=== PATIENT | male | born 2000 | race African-American/Black ===

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

== ENCOUNTER 2019-07-11 12:11 | Emergency (ER) | payer OTHER ==
[2019-07-11] MEDS ORDERED: ABIL1TAB11 PO (12:41)
[2019-07-11] MEDS ORDERED: VYVA20CA PO (12:41)
[2019-07-11 15:28] VITALS: BP 105/72
== END 2019-07-11 15:34 | disposition home or self-care (01) ==
LOC: M ED 12:11
DX: F41.1 Generalized anxiety disorder (principal); F90.9 Attention-deficit hyperactivity disorder, unspecified type; Z79.899 Other long term (current) drug therapy

== ENCOUNTER 2019-08-21 13:08 | Emergency (ER) | payer OTHER ==
[~2019-08-21] VITALS: Ht 160 cm; Wt 49.8 kg
[2019-08-21 13:08] VITALS: BP 112/60
[~2019-08-21 13:08] MED LIST: ABIL1TAB11 PO; VYVA20CA PO
[2019-08-21] MEDS ORDERED: ARIP1TAB4 (13:11)
[2019-08-21] MEDS ORDERED: VYVA20CA PO (13:36)
== END 2019-08-21 13:50 | disposition home or self-care (01) ==
LOC: M ED 13:08
DX: Z76.0 Encounter for issue of repeat prescription (principal); F90.9 Attention-deficit hyperactivity disorder, unspecified type; Z79.899 Other long term (current) drug therapy

== ENCOUNTER 2019-10-08 17:06 | Emergency (ER) | payer OTHER ==
[~2019-10-08] VITALS: Ht 160 cm; Wt 54.1 kg
[~2019-10-08 17:06] MED LIST changes: +ARIP1TAB4
[2019-10-08 17:08] VITALS: BP 123/96
[2019-10-08] MEDS ORDERED: TEST200I14 (17:20)
== END 2019-10-08 18:25 | disposition home or self-care (01) ==
LOC: M ED 17:06
DX: F43.0 Acute stress reaction (principal); F99 Mental disorder, not otherwise specified; F90.9 Attention-deficit hyperactivity disorder, unspecified type; Z79.899 Other long term (current) drug therapy

== ENCOUNTER 2021-08-05 11:08 | Emergency (ER) | payer MEDICAID, OTHER, SELFPAY ==
[~2021-08-05] VITALS: Ht 157.5 cm; Wt 59.1 kg
[~2021-08-05 11:08] MED LIST changes: +TEST200I14
--- OUTSIDE RECORDS SUMMARY | 2021-08-05 11:14 | CCD ---
Author Author [facility] Organization [facility] Address Unknown Phone Unavailable Care Team Providers Care Vice President Sales Name Role Phone Veronica Green-C Unavailable Unavailabl e Petre, Veronica MCDOWELLC Unavailable Unavailabl e PeterVeronica Unavailable Unavailabl e PeterVeronica Unavailable Unavailabl e Peter, Veronica MCDOWELLC Unavailable Unavailabl e Peter, Veronica MCDOWELLC Unavailable Unavailabl e Peter, Veronica MCDOWELLC Unavailable Unavailabl e Peter, Reginah W Katelynn FUNDRAISING CONSULTANT-C Unavailable Unavailabl e Peter, Veronica Pace FUNDRAISING CONSULTANT-C Unavailable Unavailabl e Peter, Veronica Pace FUNDRAISING CONSULTANT-C Unavailable Unavailabl e Peter, Veronica Pace FUNDRAISING CONSULTANT-C Unavailable Unavailabl e Peter, Veronica Pace FUNDRAISING CONSULTANT-C Unavailable Unavailabl e Peter, Veronica Pace FUNDRAISING CONSULTANT-C Unavailable Unavailabl e Peter, Veronica Pace FUNDRAISING CONSULTANT-C Unavailable Unavailabl e Peter, Veronica Pace FUNDRAISING CONSULTANT-C Unavailable Unavailabl e Peter, Veronica Pace FUNDRAISING CONSULTANT-C Unavailable Unavailabl e Peter, Veronica Pace FUNDRAISING CONSULTANT-C Unavailable Unavailabl e Peter, Veronica Shirleye FUNDRAISING CONSULTANT-C Unavailable Unavailabl e Peter, Veronica Pace FUNDRAISING CONSULTANT-C Unavailable Unavailabl e Peter, Veronica Pace FUNDRAISING CONSULTANT-C Unavailable Unavailabl e Peter, Veronica Pace FUNDRAISING CONSULTANT-C Unavailable Unavailabl e Peter, Veronica Pace FUNDRAISING CONSULTANT-C Unavailable Unavailabl e Peter, Veronica Pace FUNDRAISING CONSULTANT-C Unavailable Unavailabl e Peter, Veronica Pace FUNDRAISING CONSULTANT-C Unavailable Unavailabl e Peter, Veronica Pace FUNDRAISING CONSULTANT-C Unavailable Unavailabl e Peter, Veronica Pace FUNDRAISING CONSULTANT-C Unavailable Unavailabl e Peter, Veronica Pace FUNDRAISING CONSULTANT-C Unavailable Unavailabl e Peter, Veronica Shirleye FUNDRAISING CONSULTANT-C Unavailable Unavailabl e Peter, Veronica W Katelynn FUNDRAISING CONSULTANT-C Unavailable Unavailabl e Peter, Veronica W Katelynn FUNDRAISING CONSULTANT-C Unavailable Unavailabl e Peter, Veronica Fishyce FUNDRAISING CONSULTANT-C Unavailable Unavailabl e Peter, Veronica Fishyce FUNDRAISING CONSULTANT-C Unavailable Unavailabl e Fermin, Zackary Ordaz MD Unavailable Unavailable Fermin, Zackary Ordaz MD Unavailable Unavailable Fermin, Zackary Ordaz MD Unavailable Unavailable Fermin, Zackary Ordaz MD Unavailable Unavailable Fermin, Zackary Ordaz MD Unavailable Unavailable Fermin, Zackary Ordaz MD Unavailable Unavailable Fermin, Zackary Ordaz MD Unavailable Unavailable Fermin, Zackary Ordaz MD Unavailable Unavailable Fermin, Zackary Ordaz MD Unavailable Unavailable Fermin, Zackary Ordaz MD Unavailable Unavailable Fermin, Zackary Ordaz MD Unavailable Unavailable Fermin, Zackary Ordaz MD Unavailable Unavailable Fermin, Zackary Ordaz MD Unavailable Unavailable Fermin, Zackary Ordaz MD Unavailable Unavailable Fermin, Zackary Ordaz MD Unavailable Unavailable Fermin, Zackary Ordaz MD Unavailable Unavailable Fermin, Zackary Ordaz MD Unavailable Unavailable Fermin, Zackary Ordaz MD Unavailable Unavailable Fermin, Zackary Ordaz MD Unavailable Unavailable Fermin, Zackary Ordaz MD Unavailable Unavailable Fermin, Zackary Ordaz MD Unavailable Unavailable Fermin, Zackary Ordaz MD Unavailable Unavailable Fermin, Zackary Ordaz MD Unavailable Unavailable Fermin, Zackary Ordaz MD Unavailable Unavailable Fermin, Zackary Ordaz MD Unavailable Unavailable Femrin, Zackary Ordaz MD Unavailable Unavailable Fermin, Zackary Ordaz MD Unavailable Unavailable Fermin, Zackary Ordaz MD Unavailable Unavailable Fermin, Zackary Ordaz MD Unavailable Unavailable Fermin, Zackary Ordaz MD Unavailable Unavailable Fermin, Zackary Ordaz MD Unavailable Unavailable Fermin, Zackary Ordaz MD Unavailable Unavailable Fermin, Zackary Ordaz MD Unavailable Unavailable Fermin, Zackary Ordaz MD Unavailable Unavailable Fermin, Zackary Ordaz MD Unavailable Unavailable Fermin, Zackary Ordaz MD Unavailable Unavailable Fermin, Zackary Ordaz MD Unavailable Unavailable Fermin, Zackary Ordaz MD Unavailable Unavailable Fermin, Zackary Ordaz MD Unavailable Unavailable Fermin, Zackary Ordaz MD Unavailable Unavailable Fermin, Zackary Ordaz MD Unavailable Unavailable Fermin, Zackary Ordaz MD Unavailable Unavailable Fermin, Zackary Ordaz MD Unavailable Unavailable Fermin, Zackary Ordaz MD Unavailable Unavailable Fermin, Zackary Ordaz MD Unavailable Unavailable Fermin, Zackary Ordaz MD Unavailable Unavailable Fermin, Zackary Ordaz MD Unavailable Unavailable Fermin, Zackary Ordaz MD Unavailable Unavailable Fermin, Zackary Ordaz MD Unavailable Unavailable Fermin, Zackary Ordaz MD Unavailable Unavailable Fermin, Zackary Ordaz MD Unavailable Unavailable Fermin, Zackary Ordaz MD Unavailable Unavailable Fermin, Zackary Ordaz MD Unavailable Unavailable Fermin, Zackary Ordaz MD Unavailable Unavailable Fermin, Zackary Ordaz MD Unavailable Unavailable Fermin, Zackary Ordaz MD Unavailable Unavailable Fermin, Zackary Ordaz MD Unavailable Unavailable Fermin, Zackary Ordaz MD Unavailable Unavailable Fermin, Zackary Ordaz MD Unavailable Unavailable Fermin, Zackary Ordaz MD Unavailable Unavailable Fermin, Zackary Ordaz MD Unavailable Unavailable Fermin, Zackary Ordaz MD Unavailable Unavailable Fermin, Zackary Ordaz MD Unavailable Unavailable Fermin, Zackary Ordaz MD Unavailable Unavailable Fermin, Zackary Ordaz MD Unavailable Unavailable Fermin, Zackary Ordaz MD Unavailable Unavailable Fermin, Zackary Ordaz MD Unavailable Unavailable Fermin, Zackary Ordaz MD Unavailable Unavailable Fermin, Zackary Ordaz MD Unavailable Unavailable Fermin, Zackary Ordaz MD Unavailable Unavailable Fermin, Zackary Ordaz MD Unavailable Unavailable Fermin, Zackary Ordaz MD Unavailable Unavailable Fermin, Zackary Ordaz MD Unavailable Unavailable Fermin, Zackary Ordaz MD Unavailable Unavailable Fermin, Zackary Ordaz MD Unavailable Unavailable Fermin, Zackary Ordaz MD Unavailable Unavailable Fermin, Zackary Ordaz MD Unavailable Unavailable Cisneros, Anca Unavailable Unavailable Cisneros, Anca Unavailable Unavailable Cisneros, Anca Unavailable Unavailable Cisneros, Anca Unavailable Unavailable Cisneros, Anca Unavailable Unavailable Cisneros, Anca Unavailable Unavailable Cisneros, Anca Unavailable Unavailable Cisneros, Anca Unavailable Unavailable Cisneros, Anca Unavailable Unavailable Cisneros, Anca Unavailable Unavailable Cisneros, Anca Unavailable Unavailable Cisneros, Anca Unavailable Unavailable Cisneros, Anca Unavailable Unavailable Cisneros, Anca Unavailable Unavailable Cisneros, Anca Unavailable Unavailable Cisneros, Anca Unavailable Unavailable Cisneros, Anca Unavailable Unavailable Rydberg, Dorene PA Unavailable Unavailable Rydberg, Dorene PA Unavailable Unavailable Rydberg, Dorene PA Unavailable Unavailable Rydberg, Dorene PA Unavailable Unavailable Rydberg, Droene PA Unavailable Unavailable Rydberg, Dorene PA Unavailable Unavailable Rydberg, Dorene PA Unavailable Unavailable Rydberg, Dorene PA Unavailable Unavailable Rydberg, Dorene PA Unavailable Unavailable Rydberg, Dorene PA Unavailable Unavailable Rydberg, Dorene PA Unavailable Unavailable Rydberg, Dorene PA Unavailable Unavailable Rydberg, Dorene PA Unavailable Unavailable Rydberg, Dorene PA Unavailable Unavailable Rydberg, Dorene PA Unavailable Unavailable Rydberg, Dorene PA Unavailable Unavailable Rydberg, Dorene PA Unavailable Unavailable Rydberg, Dorene PA Unavailable Unavailable Rydberg, Dorene PA Unavailable Unavailable Rydberg, Dorene PA Unavailable Unavailable Rydberg, Dorene PA Unavailable Unavailable Rydberg, Dorene PA Unavailable Unavailable Rydberg, Dorene PA Unavailable Unavailable ABRAMS, W REINA PA Unavailable Unavailable ABRAMS, W REINA PA Unavailable Unavailable ABRAMS, W REINA PA Unavailable Unavailable ABRAMS, W REINA PA Unavailable Unavailable ABRAMS, W REINA PA Unavailable Unavailable ABRAMS, W REINA PA Unavailable Unavailable ABRAMS, W REINA PA Unavailable Unavailable ABRAMS, W REINA PA Unavailable Unavailable ABRAMS, W REINA PA Unavailable Unavailable ABRAMS, W REINA PA Unavailable Unavailable ABRAMS, W REINA PA Unavailable Unavailable ABRAMS, W REINA PA Unavailable Unavailable ABRAMS, W REINA PA Unavailable Unavailable ABRAMS, W REINA PA Unavailable Unavailable ABRAMS, W REINA PA Unavailable Unavailable Pastor RODRIGEZ MD Unavailable Unavailable Pastor RODRIGEZ MD Unavailable Unavailable Pastor RODRIGEZ MD Unavailable Unavailable Pastor RODRIGEZ MD Unavailable Unavailable Pastor RODRIGEZ MD Unavailable Unavailable Pastor RODIRGEZ MD Unavailable Unavailable Pastor RODRIGEZ MD Unavailable Unavailable Pastor RODRIGEZ MD Unavailable Unavailable Pastor RODRIGEZ MD Unavailable Unavailable Pastor RODRIGEZ MD Unavailable Unavailable Pastor RODRIGEZ MD Unavailable Unavailable Pastor RODRIGEZ MD Unavailable Unavailable Pastor RODRIGEZ MD Unavailable Unavailable Pastor RODRIGEZ MD Unavailable Unavailable Pastor RODRIGEZ MD Unavailable Unavailable Pastor RODRIGEZ MD Unavailable Unavailable Pastor RODRIGEZ MD Unavailable Unavailable Pastor RODRIGEZ MD Unavailable Unavailable Pastor RODRIGEZ MD Unavailable Unavailable Pastor RODRIGEZ MD Unavailable Unavailable Pastor RODRIGEZ MD Unavailable Unavailable Pastor RODRIGEZ MD Unavailable Unavailable Pastor RODRIGEZ MD Unavailable Unavailable Pastor RODRIGEZ MD Unavailable Unavailable Pastor RODRIGEZ MD Unavailable Unavailable Pastor RODRIGEZ MD Unavailable Unavailable Pastor RODRIGEZ MD Unavailable Unavailable Pastor RODRIGEZ MD Unavailable Unavailable Pastor RODRIGEZ MD Unavailable Unavailable Pastor RODRIGEZ MD Unavailable Unavailable Pastor RODRIGEZ MD Unavailable Unavailable Pastor RODRIGEZ MD Unavailable Unavailable Pastor RODRIGEZ MD Unavailable Unavailable Pastor RODRIGEZ MD Unavailable Unavailable Pastor RODRIGEZ MD Unavailable Unavailable Pastor RODRIGEZ MD Unavailable Unavailable Pastor RODRIGEZ MD Unavailable Unavailable Pastor RODRIGEZ MD Unavailable Unavailable Pastor RODRIGEZ MD Unavailable Unavailable TEELIN, Pastor SARMIENTO MD Unavailable Unavailable TEELIN, Pastor SARMIENTO MD Unavailable Unavailable TEELIN, Pastor SARMIENTO MD Unavailable Unavailable TEELIN, Pastor SARMIENTO MD Unavailable Unavailable TEELIN, Pastor SARMIENTO MD Unavailable Unavailable TEELIN, Pastor SARMIENTO MD Unavailable Unavailable Anderson, A Myla FUNDRAISING CONSULTANT Unavailable Unavailable Anderson, A Myla FUNDRAISING CONSULTANT Unavailable Unavailable Anderson, A Myla FUNDRAISING CONSULTANT Unavailable Unavailable Anderson, A Myla FUNDRAISING CONSULTANT Unavailable Unavailable Anderson, A Myla FUNDRAISING CONSULTANT Unavailable Unavailable Anderson, A Myla FUNDRAISING CONSULTANT Unavailable Unavailable Anderson, A Myla FUNDRAISING CONSULTANT Unavailable Unavailable Anderson, A Myla FUNDRAISING CONSULTANT Unavailable Unavailable Anderson, A Myla FUNDRAISING CONSULTANT Unavailable Unavailable Anderson, A Myla FUNDRAISING CONSULTANT Unavailable Unavailable Anderson, A Myla FUNDRAISING CONSULTANT Unavailable Unavailable Anderson, A Myla FUNDRAISING CONSULTANT Unavailable Unavailable Anderson, A Myla FUNDRAISING CONSULTANT Unavailable Unavailable Anderson, A Myla FUNDRAISING CONSULTANT Unavailable Unavailable Anderson, A Myla FUNDRAISING CONSULTANT Unavailable Unavailable Anderson, A Myla FUNDRAISING CONSULTANT Unavailable Unavailable Anderson, A Myla FUNDRAISING CONSULTANT Unavailable Unavailable Anderson, A Myla FUNDRAISING CONSULTANT Unavailable Unavailable Anderson, A Myla FUNDRAISING CONSULTANT Unavailable Unavailable Anderson, A Myla FUNDRAISING CONSULTANT Unavailable Unavailable Anderson, A Myla FUNDRAISING CONSULTANT Unavailable Unavailable Anderson, A Myla FUNDRAISING CONSULTANT Unavailable Unavailable Anderson, A Myla FUNDRAISING CONSULTANT Unavailable Unavailable Anderson, A Myla FUNDRAISING CONSULTANT Unavailable Unavailable Anderson, A Myla FUNDRAISING CONSULTANT Unavailable Unavailable Anderson, A Myla FUNDRAISING CONSULTANT Unavailable Unavailable Anderson, A Myla FUNDRAISING CONSULTANT Unavailable Unavailable Anderson, A Myla FUNDRAISING CONSULTANT Unavailable Unavailable Anderson, A Myla FUNDRAISING CONSULTANT Unavailable Unavailable Anderson, A Myla FUNDRAISING CONSULTANT Unavailable Unavailable Anderson, A Myla FUNDRAISING CONSULTANT Unavailable Unavailable Anderson, A Myla FUNDRAISING CONSULTANT Unavailable Unavailable Anderson, A Myla FUNDRAISING CONSULTANT Unavailable Unavailable Anderson, A Myla FUNDRAISING CONSULTANT Unavailable Unavailable Anderson, A Myla FUNDRAISING CONSULTANT Unavailable Unavailable Anderson, A Myla FUNDRAISING CONSULTANT Unavailable Unavailable Anderson, A Myla FUNDRAISING CONSULTANT Unavailable Unavailable Anderson, A Myla FUNDRAISING CONSULTANT Unavailable Unavailable Anderson, A Myla FUNDRAISING CONSULTANT Unavailable Unavailable Anderson, A Myla FUNDRAISING CONSULTANT Unavailable Unavailable Anderson, A Myla FUNDRAISING CONSULTANT Unavailable Unavailable Anderson, A Myla FUNDRAISING CONSULTANT Unavailable Unavailable Anderson, A Myla FUNDRAISING CONSULTANT Unavailable Unavailable Anderson, A Myla FUNDRAISING CONSULTANT Unavailable Unavailable Anderson, A Myla FUNDRAISING CONSULTANT Unavailable Unavailable Anderson, A Myla FUNDRAISING CONSULTANT Unavailable Unavailable Anderson, A Myla FUNDRAISING CONSULTANT Unavailable Unavailable Anderson, A Myla FUNDRAISING CONSULTANT Unavailable Unavailable Anderson, A Myla FUNDRAISING CONSULTANT Unavailable Unavailable Anderson, A Myla FUNDRAISING CONSULTANT Unavailable Unavailable Anderson, A Myla FUNDRAISING CONSULTANT Unavailable Unavailable Anderson, A Myla FUNDRAISING CONSULTANT Unavailable Unavailable HICKEY, SABA Unavailable Unavailable MEDENT_[id number], [id number] Unavailable [phone] MEDENT_4785, [id number] Unavailable [phone] MEDENT_4785, [id number] Unavailable [phone] MEDENT_4785, [id number] Unavailable [phone] MEDENT_4785, [id number] Unavailable [phone] MEDENT_4785, [id number] Unavailable [phone] MEDENT_4785, [id number] Unavailable [phone] MEDENT_4785, [id number] Unavailable [phone] MEDENT_4785, [id number] Unavailable [phone] MEDENT_4785, [id number] Unavailable [phone] MEDENT_4785, [id number] Unavailable [phone] MEDENT_4785, [id number] Unavailable [phone] MEDENT_4785, [id number] Unavailable [phone] MEDENT_4785, [id number] Unavailable [phone] MEDENT_4785, [id number] Unavailable Re-disclosure Warning The records that you are about to access may contain information from federally-assisted alcohol or drug abuse programs. If such information is present, then the following federally mandated warning applies: This information has been disclosed to you from records protected by federal confidentiality rules (42 CFR part 2). The federal rules prohibit you from making any further disclosure of this information unless further disclosure is expressly permitted by the written consent of the person to whom it pertains or as otherwise permitted by 42 CFR part 2. A general authorization for the release of medical or other information is NOT sufficient for this purpose. The Federal rules restrict any use of the information to criminally investigate or prosecute any alcohol or drug abuse patient.The records that you are about to access may contain highly sensitive health information, the redisclosure of which is protected by Article 27-F of the [facility] Public Health law. If you continue you may have access to information: Regarding HIV / AIDS; Provided by facilities licensed or operated by the [facility] Office of Mental Health; or Provided by the [facility] Office for People With Developmental Disabilities. If such information is present, then the following [facility] mandated warning applies: This information has been disclosed to you from confidential records which are protected by state law. State law prohibits you from making any further disclosure of this information without the specific written consent of the person to whom it pertains, or as otherwise permitted by law. Any unauthorized further disclosure in violation of state law may result in a fine or assisted sentence or both. A general authorization for the release of medical or other information is NOT sufficient authorization for further disc losure. Allergies and Adverse Reactions Type Description Substance Reaction Status Data Source(s ) Propensity to adverse reactions NO KNOWN ALLERGIES NO KNOWN ALLERGIES Health System Encounters Encounter Providers Location Date Indications Data Source(s ) Outpatient [address] [facility] [address] [place] [address] 03/24/2021 12:00:00 AM EDT eCW1 (Critical access hospital) Unknown [address] [facility] [address] [place] [address] 03/24/2021 12:00:00 AM EDT eCW1 (Critical access hospital) Unknown [address] [facility] [place] [address] 02/25/2021 12:00:00 AM EDT eCW1 (Critical access hospital) ([facility]) [facility] Scheduled Visit [address] [place] [address] 01/26/2021 12:00:00 AM EDT eCW1 (Critical access hospital) ([facility]) [facility] Scheduled Visit [address] [place] [address] 01/17/2021 12:00:00 AM EDT eCW1 (Critical access hospital) Outpatient [address] [facility] [address] [address] 12/24/2020 12:00:00 AM EST eCW1 (Critical access hospital) Outpatient Attender: Dorene Quinn PAReferrer: [phone] MEDENT_[id number] EMERGENCY ROOM-LAB REF 11/05/2020 11:02:00 AM EST - 11/05/2020 11:02:00 AM [facility] Outpatient Attender: Dorene MCGRATH 11/05/2020 10:30:00 AM [facility] Outpatient [facility] 11/05/2020 12:00:00 AM EST eCW1 ([facility]) Unknown [address] [facility] [address] 11/05/2020 12:00:00 AM EST eCW1 (Critical access hospital) Outpatient Attender: TORSTEN RODRIGEZ MDReferrer: Sushma Christensen MD [id number] 07/15/2020 12:00:00 AM EDT - 07/15/2020 02:05:55 PM EDT Endocrine disorder, unspecified Health System Endocrine disorder, unspecified Outpatient Attender: TORSTEN RODRIGEZ MDAttender: Anca Cisneros 06/29/2020 12:00:00 AM [facility] Outpatient Attender: Anca Cisneros EMERGENCY ROOM-LABOTHPROV 0 06/21/2020 01:16:00 PM EDT - 06/21/2020 01:16:00 PM [facility] Outpatient Attender: Myla EPSTEIN 04/12/2020 10:30 :00 AM [facility] Outpatient Attender: SABA SUERO 03/25/2020 10:00:00 AM [facility] Outpatient Attender: Katelynn Green FUNDRAISING CONSULTANT-C 02/26/2020 01:00:0 0 PM [facility] Emergency Attender: REINA MCGRATH 11/05/19 17 03:28:00 PM EST - 11/05/2016 03:35:00 PM [facility] Medications Medication Brand Name Start Date Product Form Dose Route Admi nistrative Instructions Pharmacy Instructions Status Indications Reaction Description Data Source(s) Augmentin 875-125 MG UNK 11/05/2020 12:00:00 AM EST 1.0 {tablet } active Augmentin 875-125 MG eCW1 ([facility]) Citalopram 10 MG Oral Tablet Citalopram Hydrobromide 1 0 MG Citalopram Hydrobromide 10 MG 10/28/2020 12:00:00 AM EST 1.0 {tablet} active Citalopram Hydrobromide 10 MG eCW1 ([facility]) Citalopram 20 MG Oral Tablet Citalopram Hydrobromide 2 0 MG Citalopram Hydrobromide 20 MG 10/28/2020 12:00:00 AM EST 1.0 {tablet} active Citalopram Hydrobromide 20 MG eCW1 ([facility]) Citalopram 20 MG Oral Tablet Citalopram Hydrobromide 2 0 MG Citalopram Hydrobromide 20 MG 10/28/2020 12:00:00 AM EST 1.0 {tablet} active Citalopram Hydrobromide 20 MG eCW1 ([facility]) Citalopram 20 MG Oral Tablet Citalopram Hydrobromide 2 0 MG Citalopram Hydrobromide 20 MG 10/28/2020 12:00:00 AM EST 1.0 {tablet} active Citalopram Hydrobromide 20 MG eCW1 ([facility]) Citalopram 20 MG Oral Tablet Citalopram Hydrobromide 2 0 MG Citalopram Hydrobromide 20 MG 10/28/2020 12:00:00 AM EST 1.0 {tablet} active Citalopram Hydrobromide 20 MG eCW1 ([facility]) Citalopram 20 MG Oral Tablet Citalopram Hydrobromide 2 0 MG Citalopram Hydrobromide 20 MG 10/28/2020 12:00:00 AM EST 1.0 {tablet} active Citalopram Hydrobromide 20 MG eCW1 ([facility]) Citalopram 20 MG Oral Tablet Citalopram Hydrobromide 2 0 MG Citalopram Hydrobromide 20 MG 10/28/2020 12:00:00 AM EST 1.0 {tablet} active Citalopram Hydrobromide 20 MG eCW1 ([facility]) Norethindrone 0.35 MG Oral Tablet Noreth indrone 0.35 MG Oral Tablet ([facility]) Norethindrone 0.35 MG Oral Tablet ([facility]) 12:00:00 AM EDT 0.35 mg Oral active Endocrine disorder Take 1 tablet by mouth daily Health System Endocrine disorder Testosterone Cypionate 200 MG/ML Intramu scular Solution (DEPOTESTOTERONE CYPIONATE) 4389-9171-22 07/15/2020 12:00:00 AM EDT active Endocrine disorder 0.25 mL SQ weekly CODE F [facility] Endocrine disorder BD Insulin Syringe 25G X 5/8" 1 ML (Insulin Syringe-Needle U -100) [id number] 07/15/2020 12:00:00 AM EDT active Endoc rine disorder Use as directed. Use weekly with testosterone as directed. CODE F [facility] Endocrine disorder Testosterone Cypionate 200 MG/ML Intramu scular Solution (DEPOTESTOTERONE CYPIONATE) [id number] 03/22/2020 12:00:00 AM EDT aborted Endocrine disorder 0.25 mL SQ weekly CODE F [facility] Endocrine disorder Insurance Providers Payer name Policy type / Coverage type Policy ID Covered democrat ID Covered democrat's relationship to arce Policy Arce Plan Information U [id number] Self [id number] Self [id number] U [id number] U [id number] Self [id number] U [id number] Child [id number] [facility] [id number] FA2 [id number] MEDICAID M [id number] Self [id number] [employer] [id number] PARENT [id number] [facility] WPS [id number] CHILD [id number] [facility] WPS [id number] CHILD [id number] [employer] CHAMP/VA UNAVAILABLE S UNAVAILABLE [facility] REGION [id number] FA2 [id number] MEDICAID [id number] S [id number] [facility] WPS [id number] CHILD [id number] [place] [id number] SP [id number] MEDICAID [id number] S [id number] S[place]F [place] [id number] [id number] [facility] [id number] FA2 [id number] [employer] [id number] S [id number] [employer] [id number] S [id number] SELF PAY UNAVAILABLE S UNAVAILA BLE Problems, Conditions, and Diagnoses Code Display Name Description Problem Type Effective Dates Data Source(s) R05 Cough COUGH Diagnosis 11/05/2020 10:30:00 AM [facility] J01.00 Acute maxillary sinusitis, unspecified A CUTE MAXILLARY SINUSITIS, UNSPECIFIED Diagnosis 11/05/2020 10:30:00 AM [facility] E34.9 Endocrine disorder, unspecified Endocrine disorder, un specified Diagnosis 07/15/2020 10:44:17 AM [facility] E34.9 Endocrine disorder, unspecified ENDOCRINE DISORDER, UN SPECIFIED Diagnosis 06/21/2020 01:16:00 PM [facility] F33.9 [id number] Episode of recurrent major depressive disorder, unspecified depression episode severity Problem 01/18/2021 12:00:00 AM EDT [facility] ([facility]) F41.9 [id number] Anxiety disorder, unspecified type Proble m 01/18/2021 12:00:00 AM EDT [facility] ([facility]) F41.8 [id number] Depression with anxiety Problem 10/28/2020 1 2:00:00 AM EST [facility] ([facility]) Surgeries/Procedures Procedure Description Date Indications Data Source(s) TESTOSTERONE TOTAL MALE <td>TESTOSTERONE TOTAL MALE</td><td>Routine</td><td>06/22/2020</td><td> Endocrine disorder</td><td></td> 06/22/2020 12:00:00 AM EDT Endocrine disorder Health System Endocrine disorder Results ID Date Data Source [id number] 11/05/2020 10:50:00 AM EST [facility] Name Value Range Interpretation Code Description Data Silvana rce(s) Supporting Document(s) SARS COV2 TRP Not Detected [facility] This lab was ordered by [facility] and reported by [facility]. ID Date Data Source [id number] 11/05/2020 11:53:00 AM EST [facility] Name Value Range Interpretation Code Description Data Silvana rce(s) Supporting Document(s) Adenovirus Not Detected Detected Not [facility] Coronavirus 229E Not Detected Detected Not [facility] Coronavirus HKU1 Not Detected Detected Not [facility] Coronavirus NL63 Not Detected Detected Not [facility] Coronavirus OC43 Not Detected Detected Not [facility] Sars Cov 2 Not Detected Detected Not [facility] Metapneumovirus Not Detected Detected Not [facility] Human Rhinovirus Not Detected Detected Not [facility] Influenza A Not Detected Detected [facility] Influenza B Not Detected Detected Not [facility] Parainfluenza Virus 1 Not Detected Detected [facility] Parainfluenza Virus 2 Not Detected Detected Not [facility] Parainfluenza Virus 3 Not Detected Detected Not [facility] Parainfluenza Virus 4 Not Detected Detected Not [facility] Respiratory Syncytial Virus Not Detected Detected Not [facility] Bordetella parapertus ([id number]) Not Detected Detected Not [facility] Bordetella pertussis (ptxP) Not Detected Detected Not [facility] Chlamydia pneumoniae Not Detected Detected Not [facility] Mycoplasma pneumoniae Not Detected Detected Not [facility] The Above results have been determined b y using the [facility] [employer] system.FilmArray is an automated in vitro diagnostic system thatutilizes nested multiplex Polymerase Chain Reaction (PCR)and high-resolution melting analysis to detect and identifymultiple nucleic acid targets from clinical specimens. ID Date Data Source [id number] 07/15/2020 04:32:31 PM EDT [facility] Name Value Range Interpretation Code Description Data Silvana rce(s) Supporting Document(s) Progress Note [facility] UHCOAc8lLvVKDoUz26/SWTqlVFQgz8OsDOvcLEf4BTipONZqZ6CqPUC7sX2zXBI7PPmBNaYvKuDlANK1 lbm [file] BDDdGBKbXZEpWeCqTrOuFg0tQJSKRu5+EXkwbJQbkVttKTLIFrP8MSd7ZKslZUJDGb5O ID Date Data Source [id number] 07/15/2020 04:31:21 PM EDT [facility] Name Value Range Interpretation Code Description Data Silvana rce(s) Supporting Document(s) Progress Note [facility] IUEVIw5cMmTJPiDp88/EQXtdEAQmy1QrLVhfMKu0GUteZCLiY7EoLEC1uC1tQCB3LIqWOdFyPxPxQGH4 lbm [file] LUIS ALBERTO+MeHWTlIkF7HqziSTWGLrhiixeC8fWYZqMWDqKv1SYMGxHMhbORNwCM4UWxDdAej3FX4pMOU9QHis [file] AwMDAzMjczOSAwMDAwMCBuDQowMDAwMDMyOTUxIDAw DAXwCD4UMaRjKGWzIvVbAAHqUHJvFQQrgr1YXCLvLQKeAbTeOHLvEWDxJASsXLwjLZTcWFOtEVH3WOBk LWCjAX4QDsJzSUDgZkX9EBSgJCDzXYNoxf9EEFDtFNUfCbf0CbTvDMWgKQAtSKkyRCHfUHH1TVf1DKXz QVIfBA1TXmAmWKRaKtRoMNGrUMZtSZVoas1FCJStXJ AjCMB0UqXyCAJsEUInFAijUUHrXIU8CjHbXKXnMVAtZU8WEoGsHEWoCvaaPincLKUxMXTgcs9ZYZLdAQ AtZuNzCSMiFMZzKQEcCWhtMPFuGTU9Ubt3ZFEyTDSzKP5LEiRlJEojRPBGDeo6TGvvV9a3SBNaMI7LB7 Lrp3KoEaueGSXMCRfyNK1waxQcJSVlXv3SR4nZKomq PAQ7SiG3QmrlBHF6TYHmLQw3HFMaJUQ1Wkt1QvI4Jx2oIME6MlAtLctfE8NnHuV2OjK5TDgoD3JkJjfy Gnk8HlSrBhKwYX0OIq4HEnA6MJR9lHEcSj2GQga3NyZGRcJjXC9WQDm= ID Date Data Source [id number] 06/23/2020 12:05:00 PM EDT [facility] Name Value Range Interpretation Code Description Data Silvana rce(s) Supporting Document(s) Testosterone, Serum 425 ng/dL 264-916 [facility] Adult male reference interval is based o n a population ofhealthy nonobese males (BMI <30) between 19 and 39 years old.Travison, et.al. JCEM 2017,102;0135-2450. PMID: [id number]. ID Date Data Source [id number] 06/22/2020 08:09:00 AM EDT [facility] Name Value Range Interpretation Code Description Data Silvana rce(s) Supporting Document(s) TESTOSTERONE, SERUM 425 ng/dL 264-916 [facility] Adult male reference interval is based o n a population ofhealthy nonobese males (BMI <30) between 19 and 39 yearsold. Travison, et.al. JCEM 2017,102;2220-6397. PMID:[id number].Performed at: RN - [facility] [address] [id number] Director: Zainab Bennett MD, Phone: [phone] ID Date Data Source [id number] 06/21/2020 02:06:00 PM EDT [facility] FAX [phone] Name Value Range Interpretation Code Description Data Silvana rce(s) Supporting Document(s) GLUCOSE 86 mg/dL 74-106 [facility] BLOOD UREA NITROGEN 13 mg/dL 7-18 [facility] CREATININE 1.1 mg/dL 0.7-1.3 [facility] SODIUM 142 mmol/L 136-145 [facility] POTASSIUM 3.9 mmol/L 3.5-5.1 [facility] CHLORIDE 105 mmol/L 98-107 [facility] CO2 32 mmol/L 21-32 [facility] CALCIUM 8.8 mg/dL 8.5-10.1 [facility] ANION GAP 5.0 mmol/L 5-12 [facility] GLOMERULAR FILTRATION RATE 85 mL/min [facility] GFR IS CALCULATED IN mL/min/1.73m2 COSTA L FUNCTION: >90MILDLY DECREASED: 60-89MILDY TO MODERATELY DECREASED: 45-59 MODERATELY TO SEVERELY DECREASED: 30-44SEVERELY DECREASED: 15-29RENAL FAILURE: <15 AST 14 U/L 15-37 [facility] ALT 22 U/L 12-78 [facility] ALKALINE PHOSPHATASE 55 U/L 46-116 [facility] TOTAL BILIRUBIN 0.9 mg/dL 0.2-1.0 [facility] TOTAL PROTEIN 7.0 g/dl 6.4-8.2 [facility] ALBUMIN 4.0 gm/dL 3.4-5.0 [facility] ID Date Data Source [id number] 06/21/2020 01:47:00 PM EDT [facility] FAX [phone] Name Value Range Interpretation Code Description Data Silvana rce(s) Supporting Document(s) WHITE BLOOD COUNT 4.5 K/mm3 4.0-10.0 [facility] al RED BLOOD COUNT 4.70 M/mm3 4.50-6.00 [facility] HEMOGLOBIN 13.8 gm/dL 14.0-18.0 L [facility] HEMATOCRIT 41.1 % 42.0-54.0 [facility] MEAN CELL VOLUME 87.4 fl 80-96 [facility] MEAN CORPUSCULAR HEMOGLOBIN 29.4 pg 27.0-31.0 [facility] MEAN CORPUSCULAR HGB CONC 33.6 g/dl 32.0-36.0 [facility] RED CELL DISTRIBUTION WIDTH 12.5 % 10.0-14.5 [facility] PLATELET COUNT 173 K/mm3 172-450 [facility] MEAN PLATELET VOLUME 10.8 fl 9.0-13.0 [facility] pital GRAN % 61.1 % 50-80.0 [facility] IG% 0.0 % 0.0-0.2 [facility] LYMPH % 29.8 % 25.0-50.0 [facility] MONO % 6.0 % 2.0-10.0 [facility] EOS % 2.7 % 0-5.0 [facility] BASO % 0.4 % 0.0-2.0 [facility] GRAN # 2.7 K/mm3 2.0-8.00 [facility] IG# 0.0 K/mm3 0.0-0.2 [facility] LYMPH # 1.3 K/mm3 1.0-5.0 [facility] MONO # 0.3 K/mm3 0.10-1.20 [facility] EOS # 0.1 K/mm3 0.0-0.5 [facility] BASO # 0.0 K/mm3 0.0-0.2 [facility] Procedure Social History Code Duration Value Status Description Data Source(s ) Smoking 03/24/2021 12:00:00 AM EDT Light tobacco smoker comple rohan Light tobacco smoker eCW ([facility]) Smoking 03/24/2021 12:00:00 AM EDT Light tobacco smoker comple rohan Light tobacco smoker eCW ([facility]) Smoking 12/24/2020 12:00:00 AM EST Light tobacco smoker comple rohan Light tobacco smoker eCW ([facility]) Smoking 12/24/2020 12:00:00 AM EST Light tobacco smoker comple rohan Light tobacco smoker eCW ([facility]) Smoking 12/24/2020 12:00:00 AM EST Light tobacco smoker comple rohan Light tobacco smoker eCW1 ([facility]) Smoking 12/24/2020 12:00:00 AM EST Light tobacco smoker comple rohan Light tobacco smoker eCW ([facility]) Smoking 10/28/2020 12:00:00 AM EST Light tobacco smoker comple rohan Light tobacco smoker eCW1 ([facility]) Vital Signs ID Date Data Source UNK Name Value Range Interpretation Code Description Data Source(s) Body weight 110.2 [lb_av] 110.2 [lb_av] [facility] ([facility]) Body height 63 [in_i] 63 [in_i] [facility] ([facility]) Body mass index (BMI) [Ratio] 19.52 kg/m2 19.52 kg/m2 W1 ([facility]) Heart rate 82 /min 82 /min eCW1 ([facility]) Respiratory rate 18 /min 18 /min eCW1 ([facility]) Body temperature 98.0 [degF] 98.0 [degF] eCW1 ( [facility]) Systolic blood pressure 119 mm[Hg] 119 mm[Hg] e CW1 ([facility]) Diastolic blood pressure 59 mm[Hg] 59 mm[Hg] eCW1 ([facility]) Body weight 121.4 [lb_av] 121.4 [lb_av] eCW1 ([facility]) Body height 63 [in_i] 63 [in_i] eCW1 ([facility] hospital) Body mass index (BMI) [Ratio] 21.50 kg/m2 21.50 kg/m2 eCW1 ([facility]) Heart rate 73 /min 73 /min eCW1 ([facility]) Respiratory rate 16 /min 16 /min eCW1 ([facility]) Body temperature 98.6 [degF] 98.6 [degF] eCW1 ( [facility]) Systolic blood pressure 120 mm[Hg] 120 mm[Hg] e CW1 ([facility]) Diastolic blood pressure 75 mm[Hg] 75 mm[Hg] eCW1 ([facility]) Respiratory rate 16 /min 16 /min eCW1 ([facility]) Body height 63 [in_i] 63 [in_i] eCW1 ([facility]) Oxygen saturation in Arterial blood by Pulse oximetry 100 % 100 % eCW1 ([facility]) Body weight 126 [lb_av] 126 [lb_av] eCW1 ([facility]) Body mass index (BMI) [Ratio] 22.32 kg/m2 22.32 kg/m2 eCW1 ([facility]) Body temperature 98.0 [degF] 98.0 [degF] eCW1 ( [facility]) Heart rate 69 /min 69 /min eCW1 ([facility]) Patient Treatment Plan of Care Planned Activity Planned Date Details Description Data Source (s) Augmentin 875-125 MG 11/05/2020 12:00:00 AM EST eCW1 ([facility]) Citalopram 20 MG Oral Tablet 10/28/2020 12:00:00 AM EST eCW1 ([facility]) Citalopram 20 MG Oral Tablet 10/28/2020 12:00:00 AM EST eCW1 ([facility]) Citalopram 20 MG Oral Tablet 10/28/2020 12:00:00 AM EST eCW1 ([facility]) Citalopram 20 MG Oral Tablet 10/28/2020 12:00:00 AM EST eCW1 ([facility]) Citalopram 10 MG Oral Tablet 10/28/2020 12:00:00 AM EST eCW1 ([facility]) BD Insulin Syringe 25G X 5/8" 1 ML (Insulin Syringe-Ne edle U-100) 07/15/2020 12:00:00 AM [facility] ospital Norethindrone 0.35 MG Oral Tablet 07/15/2020 12:00:00 AM [facility] Testosterone Cypionate 200 MG/ML Intramu scular Solution (DEPOTESTOTERONE CYPIONATE) 07/15/2020 12:00:00 AM [facility] Testosterone Cypionate 200 MG/ML Intramu scular Solution (DEPOTESTOTERONE CYPIONATE) 03/22/2020 12:00:00 AM [facility]
--- OUTSIDE RECORDS SUMMARY | 2021-08-05 11:54 | CCD ---
Author Author [facility] Address Unknown Phone Unavailable Care Team Providers Care Fiscal Economist Name Role Phone Veronica Green Unavailable Unavailabl e PeterVeronica Unavailable Unavailabl e PeterVeronica Unavailable Unavailabl e PeterVeronicaC Unavailable Unavailabl e PeterVeronicaC Unavailable Unavailabl e PeterVeronicaC Unavailable Unavailabl e Peter, Veronica Shirleye MAT ROLLER-C Unavailable Unavailabl e Peter, Veronica Pace MAT ROLLER-C Unavailable Unavailabl e Peter, Veronica Pace MAT ROLLER-C Unavailable Unavailabl e Peter, Veronica Shirleye MAT ROLLER-C Unavailable Unavailabl e Peter, Veronica Shirleye MAT ROLLER-C Unavailable Unavailabl e Peter, Veronica Pace MAT ROLLER-C Unavailable Unavailabl e Peter, Veronica Shirleye MAT ROLLER-C Unavailable Unavailabl e Peter, Veronica W Katelynn MAT ROLLER-C Unavailable Unavailabl e Peter, Veronica W Katelynn MAT ROLLER-C Unavailable Unavailabl e Peter, Veronica Shirleye MAT ROLLER-C Unavailable Unavailabl e Peter, Veronica Shirleye MAT ROLLER-C Unavailable Unavailabl e Peter, Veronica Pace MAT ROLLER-C Unavailable Unavailabl e Peter, Veronica Pace MAT ROLLER-C Unavailable Unavailabl e Epter, Veronica Pace MAT ROLLER-C Unavailable Unavailabl e Peter, Veronica Pace MAT ROLLER-C Unavailable Unavailabl e Peter, Veronica Pace MAT ROLLER-C Unavailable Unavailabl e Peter, Veronica Pace MAT ROLLER-C Unavailable Unavailabl e Peter, Veronica Shirleye MAT ROLLER-C Unavailable Unavailabl e Peter, Veronica Pace MAT ROLLER-C Unavailable Unavailabl e Peter, Veroncia Fishyce MAT ROLLER-C Unavailable Unavailabl e Peter, Veronica W Katelynn MAT ROLLER-C Unavailable Unavailabl e Peter, Veronica W Katelynn MAT ROLLER-C Unavailable Unavailabl e Peter, Veronica W Katelynn MAT ROLLER-C Unavailable Unavailabl e Peter, Veronica Shirleye MAT ROLLER-C Unavailable Unavailabl e Peter, Veronica W Katelynn MAT ROLLER-C Unavailable Unavailabl e Peter, Regradha W Katelynn MAT ROLLER-C Unavailable Unavailabl e Zackary Christensen MD Unavailable Unavailable Fermin, Zackary Ordaz MD [...] Fermin, Zackary Ordaz MD Unavailable Unavailable Fermin, Zakcary Ordaz MD Unavailable Unavailable Fermin, Zackary Ordaz [...] SARMIENTO MD Unavailable Unavailable Anderson, A Myla MAT ROLLER Unavailable Unavailable Anderson, A Myla MAT ROLLER Unavailable Unavailable Anderson, A Myla MAT ROLLER Unavailable Unavailable Anderson, A Myla MAT ROLLER Unavailable Unavailable Anderson, A Myla MAT ROLLER Unavailable Unavailable Anderson, A Myla MAT ROLLER Unavailable Unavailable Anderson, A Myla MAT ROLLER Unavailable Unavailable Anderson, A Myla MAT ROLLER Unavailable Unavailable Anderson, A Myla MAT ROLLER Unavailable Unavailable Anderson, A Myla MAT ROLLER Unavailable Unavailable Anderson, A Myla MAT ROLLER Unavailable Unavailable Anderson, A Myla MAT ROLLER Unavailable Unavailable Anderson, A Myla MAT ROLLER Unavailable Unavailable Anderson, A Myla MAT ROLLER Unavailable Unavailable Anderson, A Myla MAT ROLLER Unavailable Unavailable Anderson, A Myla MAT ROLLER Unavailable Unavailable Anderson, A Myla MAT ROLLER Unavailable Unavailable Anderson, A Myla MAT ROLLER Unavailable Unavailable Anderson, A Myla MAT ROLLER Unavailable Unavailable Anderson, A Myla MAT ROLLER Unavailable Unavailable Anderson, A Myla MAT ROLLER Unavailable Unavailable Anderson, A Myla MAT ROLLER Unavailable Unavailable Anderson, A Myla MAT ROLLER Unavailable Unavailable Anderson, A Myla MAT ROLLER Unavailable Unavailable Anderson, A Myla MAT ROLLER Unavailable Unavailable Anderson, A Myla MAT ROLLER Unavailable Unavailable Anderson, A Myla MAT ROLLER Unavailable Unavailable Anderson, A Myla MAT ROLLER Unavailable Unavailable Anderson, A Myla MAT ROLLER Unavailable Unavailable Anderson, A Myla MAT ROLLER Unavailable Unavailable Anderson, A Myla MAT ROLLER Unavailable Unavailable Anderson, A Myla MAT ROLLER Unavailable Unavailable Anderson, A Myla MAT ROLLER Unavailable Unavailable Anderson, A Myla MAT ROLLER Unavailable Unavailable Anderson, A Myla MAT ROLLER Unavailable Unavailable Anderson, A Myla MAT ROLLER Unavailable Unavailable Anderson, A Myla MAT ROLLER Unavailable Unavailable Anderson, A Myla MAT ROLLER Unavailable Unavailable Anderson, A Myla MAT ROLLER Unavailable Unavailable Anderson, A Myla MAT ROLLER Unavailable Unavailable Anderson, A Myla MAT ROLLER Unavailable Unavailable Anderson, A Myla MAT ROLLER Unavailable Unavailable Anderson, A Myla MAT ROLLER Unavailable Unavailable Anderson, A Myla MAT ROLLER Unavailable Unavailable Anderson, A Myla MAT ROLLER Unavailable Unavailable Anderson, A Myla MAT ROLLER Unavailable Unavailable Anderson, A Myla MAT ROLLER Unavailable Unavailable Anderson, A Myla MAT ROLLER Unavailable Unavailable Anderson, A Myla MAT ROLLER Unavailable Unavailable Anderson, A Myla MAT ROLLER Unavailable Unavailable Anderson, A Myla MAT ROLLER Unavailable Unavailable Anderson, A Myla MAT ROLLER Unavailable Unavailable HICKEY, SABA Unavailable Unavailable MEDENT_[id number], [id number] Unavailable [phone] MEDENT_4785, [id number] Unavailable [phone] MEDENT_4785, [id number] Unavailable [phone] MEDENT_4785, [id number] Unavailable [phone] MEDENT_4785, [id number] Unavailable [phone] MEDENT_4785, [id number] Unavailable [phone] MEDENT_4785, [id number] Unavailable [phone] MEDENT_4785, [id number] Unavailable [phone] MEDENT_4785, [id number] Unavailable [phone] MEDENT_4785, [id number] Unavailable [phone] MEDENT_4785, [id number] Unavailable [phone] MEDENT_4785, [id number] Unavailable [phone] MEDENT_4785, [id number] Unavailable [phone] MEDENT_4785, [id number] Unavailable MEDENT_4785, [id number] Unavailable Re-disclosure Warning The records that you [...] is protected by Article 27-F of the [facility] Public Health law. If you continue you may have access to information: Regarding HIV / AIDS; Provided by facilities licensed or operated by the [facility] Office of Mental Health; or Provided by the [facility] Office for People With Developmental Disabilities. If such information is present, then the following [facility] mandated warning applies: This information has been [...] law may result in a fine or snf sentence or both. A general authorization for the release of medical or other information is NOT sufficient authorization for further disc losure. Allergies and Adverse Reactions Type Description Substance Reaction Status Data Source(s ) Propensity to adverse reactions NO KNOWN ALLERGIES NO KNOWN ALLERGIES [facility] Encounters Encounter Providers Location Date Indications Data Source(s ) [place] [address] [facility] [address] 03/24/2021 12:00:00 AM EDT eCW1 (On license of [facility]) Unknown [address] [facility] [address] 03/24/2021 12:00:00 AM EDT eCW1 (On license of [facility]) Unknown [address] [facility] [address] 02/25/2021 12:00:00 AM EDT eCW1 (On license of [facility]) ([facility]) [facility] Scheduled Visit [address] [place] [address] 01/26/2021 12:00:00 AM EDT eCW1 ([facility]) ([facility]) [facility] Scheduled Visit [address] [place] [address] 01/17/2021 12:00:00 AM EDT eCW1 ([facility]) [place]patient [address] [facility] [address] 12/24/2020 12:00:00 AM EST eCW1 (On license of [facility]) Outpatient Attender: Dorene Pittman: [phone] MEDENT_[id number] EMERGENCY ROOM-LAB REF 11/05/2020 11:02:00 AM EST - 11/05/2020 11:02:00 AM [facility] Outpatient Attender: Dorene MCGRATH 11/05/2020 10:30:00 AM [facility] Outpatient [facility] 11/05/2020 12:00:00 AM EST eCW1 ([facility]) Unknown [address] [facility] [address] 11/05/2020 12:00:00 AM EST eCW1 (On license of [facility]) Outpatient Attender: TORSTEN Simmonserrer: Sushma Christensen MD [id number] 07/15/2020 12:00:00 AM EDT - 07/15/2020 02:05:55 PM EDT Endocrine disorder, unspecified [facility] Endocrine disorder, unspecified Outpatient Attender: TORSTEN RODRIGEZ MDAttender: Anca Cisneros 06/29/2020 12:00:00 AM EDT [facility] Outpatient Attender: Anca Cisneros EMERGENCY ROOM-LABOTHPROV 0 06/21/2020 01:16:00 PM EDT - 06/21/2020 01:16:00 PM [facility] Outpatient Attender: Myla Salvadorotte MAT ROLLER 04/12/2020 10:30 :00 AM [facility] Outpatient Attender: SABA SUERO 03/25/2020 10:00:00 AM [facility] Outpatient Attender: Katelynn Green MAT ROLLER-C 02/26/2020 01:00:0 0 PM [facility] Emergency Attender: REINA MCGRATH 11/05/19 17 03:28:00 PM EST - 11/05/2016 03:35:00 PM [facility] Medications Medication Brand Name Start Date Product Form Dose Route Admi nistrative Instructions Pharmacy Instructions Status Indications Reaction Description Data Source(s) Augmentin 875-125 MG UNK 11/05/2020 12:00:00 AM EST 1.0 {tablet } active Augmentin 875-125 MG eCW1 ([facility]) Citalopram 10 MG Oral Tablet Citalopram Hydrobromide 1 0 MG Citalopram Hydrobromide 10 MG 10/28/2020 12:00:00 AM EST 1.0 {tablet} active Citalopram Hydrobromide 10 MG eCW1 ([facility]) Citalopram 20 MG Oral Tablet Citalopram Hydrobromide 2 0 MG Citalopram Hydrobromide 20 MG 10/28/2020 12:00:00 AM EST 1.0 {tablet} active Citalopram Hydrobromide 20 MG eCW1 ([facility]) Citalopram 20 MG Oral Tablet Citalopram Hydrobromide 2 0 MG Citalopram Hydrobromide 20 MG 10/28/2020 12:00:00 AM EST 1.0 {tablet} active Citalopram Hydrobromide 20 MG eCW1 ([facility]) Citalopram 20 MG Oral Tablet Citalopram Hydrobromide 2 0 MG Citalopram Hydrobromide 20 MG 10/28/2020 12:00:00 AM EST 1.0 {tablet} active Citalopram Hydrobromide 20 MG eCW1 ([facility]) Citalopram 20 MG Oral Tablet Citalopram Hydrobromide 2 0 MG Citalopram Hydrobromide 20 MG 10/28/2020 12:00:00 AM EST 1.0 {tablet} active Citalopram Hydrobromide 20 MG eCW1 ([facility]) Citalopram 20 MG Oral Tablet Citalopram Hydrobromide 2 0 MG Citalopram Hydrobromide 20 MG 10/28/2020 12:00:00 AM EST 1.0 {tablet} active Citalopram Hydrobromide 20 MG eCW1 ([facility]) Citalopram 20 MG Oral Tablet Citalopram Hydrobromide 2 0 MG Citalopram Hydrobromide 20 MG 10/28/2020 12:00:00 AM EST 1.0 {tablet} active Citalopram Hydrobromide 20 MG eCW1 ([facility]) Norethindrone 0.35 MG Oral Tablet Noreth indrone 0.35 MG Oral Tablet (Orth[facility]ron[facility]) Norethindrone 0.35 MG Oral Tablet ([facility]) 12:00:00 AM EDT 0.35 mg Oral active Endocrine disorder Take 1 tablet by mouth daily [facility] Endocrine disorder Testosterone Cypionate 200 MG/ML Intramu scular Solution (DEPOTESTOTERONE CYPIONATE) 8216-8342-30 07/15/2020 12:00:00 AM EDT active Endocrine disorder 0.25 mL SQ weekly CODE F [facility] Endocrine disorder BD Insulin Syringe 25G X 5/8" 1 ML (Insulin Syringe-Needle U -100) [id number] 07/15/2020 12:00:00 AM EDT active Endoc rine disorder Use as directed. Use weekly with testosterone as directed. CODE F [facility] Endocrine disorder Testosterone Cypionate 200 MG/ML Intramu scular Solution (DEPOTESTOTERONE CYPIONATE) 5753-7989-35 03/22/2020 12:00:00 AM EDT aborted Endocrine disorder 0.25 mL SQ weekly CODE F [facility] Endocrine disorder Insurance Providers Payer name Policy type / Coverage type Policy ID Covered libertarian ID Covered libertarian's relationship to arce Policy Arce Plan Information U [id number] Self [id number] U [id number] Self [id number] U [id number] Self [id number] U [id number] Self [id number] U [id number] Child [id number] [facility] HUMANA [id number] FA2 [id number] MEDICAID M [id number] Self [id number] [facility] [id number] PARENT [id number] [facility] WPS [id number] CHILD [id number] [facility] W[facility] [id number] CHILD [id number] [facility] FEDERAL SERVICES CHAMP/VA UNAVAILABLE S UNAVAILABLE [place] [id number] FA2 [id number] MEDICAID [id number] S [id number] [facility] WPS [id number] CHILD [id number] [place] [id number] SP [id number] MEDICAID [id number] S [id number] [facility] [id number] FA2 [id number] SELF PAY [place] MEDICA[place] [id number] FA2 [id number] [employer] [id number] S [id number] [employer] [id number] S [id number] SELF PAY UNAVAILABLE S UNAVAILA BLE Problems, Conditions, and Diagnoses Code Display Name Description Problem Type Effective Dates Data Source(s) R05 Cough COUGH Diagnosis 11/05/2020 10:30:00 AM [facility] J01.00 Acute maxillary sinusitis, unspecified A CUTE MAXILLARY SINUSITIS, UNSPECIFIED Diagnosis 11/05/2020 10:30:00 AM [facility] E34.9 Endocrine disorder, unspecified Endocrine disorder, un specified Diagnosis 07/15/2020 10:44:17 AM [facility] E34.9 Endocrine disorder, unspecified ENDOCRINE DISORDER, UN SPECIFIED Diagnosis 06/21/2020 01:16:00 PM [facility] F33.9 [id number] Episode of recurrent major depressive disorder, unspecified depression episode severity Problem 01/18/2021 12:00:00 AM EDT eCW1 ([facility]) F41.9 [id number] Anxiety disorder, unspecified type Proble m 01/18/2021 12:00:00 AM EDT eCW1 ([facility]) F41.8 [id number] Depression with anxiety Problem 10/28/2020 1 2:00:00 AM EST eCW1 ([facility]) Surgeries/Procedures Procedure Description Date Indications Data Source(s) TESTOSTERONE TOTAL MALE <td>TESTOSTERONE TOTAL MALE</td><td>Routine</td><td>06/22/2020</td><td> Endocrine disorder</td><td></td> 06/22/2020 12:00:00 AM EDT Endocrine disorder [facility] Endocrine disorder Results ID Date Data Source [id number] 11/05/2020 10:50:00 AM EST [facility] Name Value Range Interpretation Code Description Data Silvana rce(s) Supporting Document(s) SARS COV2 TRP Not Detected [facility] This lab was ordered by [facility] and reported by [facility]. ID Date Data Source [id number] 11/05/2020 11:53:00 AM EST [facility] Name Value Range Interpretation Code Description Data Silvana rce(s) Supporting Document(s) Adenovirus Not Detected Detected Not [facility] Coronavirus 229E Not Detected Detected Not [facility] Coronavirus HKU1 Not Detected Detected Not [facility] Coronavirus NL63 Not Detected Detected Not [facility] Coronavirus OC43 Not Detected Detected Not [facility] Sars Cov 2 Not Detected Detected Not [facility] Human Metapneumovirus Not Detected Detected [facility] Human Rhinovirus Not Detected Detected Not [facility] Influenza A Not Detected Detected [facility] Influenza B Not Detected Detected Not [facility] Parainfluenza Virus 1 Not Detected Detected Not [facility] Parainfluenza Virus 2 Not Detected Detected Not [facility] Parainfluenza Virus 3 Not Detected Detected Not [facility] Parainfluenza Virus 4 Not Detected Detected Not [facility] Respiratory Syncytial Virus Not Detected Detected Not [facility] Bordetella parapertus (BY9769) Not Detected Detected Not [facility] Bordetella pertussis (ptxP) Not Detected Detected Not [facility] Chlamydia pneumoniae Not Detected Detected Not [facility] Mycoplasma pneumoniae Not Detected Detected Not [facility] The Above results have been determined b y using the [facility] FilmArray system.FilmArray is an automated in vitro diagnostic system thatutilizes nested multiplex Polymerase Chain Reaction (PCR)and high-resolution melting analysis to detect and identifymultiple nucleic acid targets from clinical specimens. ID Date Data Source [id number] 07/15/2020 04:32:31 PM EDT [facility] Name Value Range Interpretation Code Description Data Silvana rce(s) Supporting Document(s) Progress Note [facility] NFVIOv7jDdUIPxWv99/IDPbeXTJad3CfRYoiWHe8NInnJCYgR3CjHKU5qH8nORO1WVvBNiLkEzBtONQ9 lbm [file] QJOePXByAMPzCoVzUvYmWc5nGOBMVr0+YOfsvSTgrBocFVKBNqI4ULa5DPndYYDCYl2M ID Date Data Source [id number] 07/15/2020 04:31:21 PM EDT [facility] Name Value Range Interpretation Code Description Data Silvana rce(s) Supporting Document(s) Progress Note [facility] LZAZCx7jJxRWEiAq11/VYBzaTXFel0WpEZytXQs8PEgqVUOcT3PjYXX7rN5uZBM1GYsRWqCuTiQrIAK3 lbm [file] LUIS ALBERTO+BdCHAsWrB4MtkfHLBSJjcomyuV7fPCUlJFPtNg1DXKIeCKejDSIhTB5JUkZtMmc8IB6hSDD6LQzc [file] AwMDAzMjczOSAwMDAwMCBuDQowMDAwMDMyOTUxIDAw BYNuFS6VZbPpJWCpAnWkARUiSFDgQBZsev1OYYGtKRPdBrCwLXUiMVYvYPHsXXxdWPZlAWOdGFC0CZBz NFAdMG3MDdEzDLKoUnH7YROsOUDwZUNkfj2GLXWaKYZhOfn1DaFySSYpRJWkMSvbWRWmDFW3EDb7AKGf OTHjDT5LNcDaBVKlTmIoXQKhQKYcWBBroc2UTDGeZI CmUFN0UzOgFMEtOCXdSRwzMVTdPJX9EmSzLGYdVPCuHE7UFaVaJYXeIhwsArfkPXClOFXwuh2SCEGaNX NzNdFmSEKcDZFnDVEaJNvmEWOoTLQ6Ruy5DQCbJMBlBN2XMfCcLCfmRKOUEna5PBikX5e4KOTrHI9UE6 Xlm5MiXyjhURUJPLvyFX9bdyIeKIPaVa2AH0vQTmel ENM9ZxI6PrefHFR8LPXnAYw7BPXkVPE5Nxv7WdH9Gx5gBPW7JhEeQgifE1RiYbV9QpO7FPniZ8NtPrps Zgj4LsApVtUbIJ1ZAy7OVfD2TLS7mLUwFz4CFpf8BiETMwGoUN1CCHt= ID Date Data Source [id number] 06/23/2020 12:05:00 PM EDT [facility] Name Value Range Interpretation Code Description Data Silvana rce(s) Supporting Document(s) Testosterone, Serum 425 ng/dL 264-916 [facility] Adult male reference interval is based o n a population ofhealthy nonobese males (BMI <30) between 19 and 39 years old.Travison, et.al. JCEM 2017,102;4247-1477. PMID: [id number]. ID Date Data Source [id number] 06/22/2020 08:09:00 AM EDT [facility] Name Value Range Interpretation Code Description Data Silvana rce(s) Supporting Document(s) TESTOSTERONE, SERUM 425 ng/dL 264-916 [facility] Adult male reference interval is based o n a population ofhealthy nonobese males (BMI <30) between 19 and 39 yearsold. Travison, et.al. JCEM 2017,102;3662-7700. PMID:[id number].Performed at: - [facility] [id number] Director: Zainab Bennett MD, Phone: [phone] ID Date Data Source [id number] 06/21/2020 02:06:00 PM [facility]T [phone] Name Value Range Interpretation Code Description Data Silvana rce(s) Supporting Document(s) GLUCOSE 86 mg/dL 74-106 [facility] BLOOD UREA NITROGEN 13 mg/dL 7-18 [facility] ital CREATININE 1.1 mg/dL 0.7-1.3 [facility] SODIUM 142 mmol/L 136-145 [facility] POTASSIUM 3.9 mmol/L 3.5-5.1 [facility] CHLORIDE 105 mmol/L 98-107 [facility] CO2 32 mmol/L 21-32 [facility] CALCIUM 8.8 mg/dL 8.5-10.1 [facility] ANION GAP 5.0 mmol/L 5-12 [facility] GLOMERULAR FILTRATION RATE 85 mL/min [facility] GFR IS CALCULATED IN mL/min/1.73m2 COSTA L FUNCTION: >90MILDLY DECREASED: 60-89MILDY TO MODERATELY DECREASED: 45-59 MODERATELY TO SEVERELY DECREASED: 30-44SEVERELY DECREASED: 15-29RENAL FAILURE: <15 AST 14 U/L 15-37 [facility] ALT 22 U/L 12-78 [facility] ALKALINE PHOSPHATASE 55 U/L 46-116 [facility] TOTAL BILIRUBIN 0.9 mg/dL 0.2-1.0 [facility] TOTAL PROTEIN 7.0 g/dl 6.4-8.2 [facility] ALBUMIN 4.0 gm/dL 3.4-5.0 [facility] ID Date Data Source [id number] 06/21/2020 01:47:00 PM EDT [facility] FAX [phone] Name Value Range Interpretation Code Description Data Silvana e(s) Supporting Document(s) WHITE BLOOD COUNT 4.5 K/mm3 4.0-10.0 [facility] RED BLOOD COUNT 4.70 M/mm3 4.50-6.00 [facility] HEMOGLOBIN 13.8 gm/dL 14.0-18.0 [facility] HEMATOCRIT 41.1 % 42.0-54.0 [facility] MEAN CELL VOLUME 87.4 fl 80-96 [facility] MEAN CORPUSCULAR HEMOGLOBIN 29.4 pg 27.0-31.0 [facility] MEAN CORPUSCULAR HGB CONC 33.6 g/dl 32.0-36.0 [facility] RED CELL DISTRIBUTION WIDTH 12.5 % 10.0-14.5 [facility] PLATELET COUNT 173 K/mm3 172-450 [facility] MEAN PLATELET VOLUME 10.8 fl 9.0-13.0 [facility] pital GRAN % 61.1 % 50-80.0 [facility] IG% 0.0 % 0.0-0.2 [facility] LYMPH % 29.8 % 25.0-50.0 [facility] MONO % 6.0 % 2.0-10.0 [facility] EOS % 2.7 % 0-5.0 [facility] BASO % 0.4 % 0.0-2.0 [facility] GRAN # 2.7 K/mm3 2.0-8.00 [facility] IG# 0.0 K/mm3 0.0-0.2 [facility] LYMPH # 1.3 K/mm3 1.0-5.0 [facility] MONO # 0.3 K/mm3 0.10-1.20 [facility] EOS # 0.1 K/mm3 0.0-0.5 [facility] BASO # 0.0 K/mm3 0.0-0.2 [facility] Procedure Social History Code Duration Value Status Description Data Source(s ) Smoking 03/24/2021 12:00:00 AM EDT Light tobacco smoker comple rohan Light tobacco smoker eCW ([facility]) Smoking 03/24/2021 12:00:00 AM EDT Light tobacco smoker comple rohan Light tobacco smoker eCW1 ([facility]) Smoking 12/24/2020 12:00:00 AM EST Light tobacco smoker comple rohan Light tobacco smoker eCW ([facility]) Smoking 12/24/2020 12:00:00 AM EST Light tobacco smoker comple rohan Light tobacco smoker eCW ([facility]) Smoking 12/24/2020 12:00:00 AM EST Light tobacco smoker comple rohan Light tobacco smoker eCW ([facility]) Smoking 12/24/2020 12:00:00 AM EST Light tobacco smoker comple rohan Light tobacco smoker eCW ([facility]) Smoking 10/28/2020 12:00:00 AM EST Light tobacco smoker comple rohan Light tobacco smoker eCW ([facility]) Vital Signs ID Date Data Source UNK Name Value Range Interpretation Code Description Data Source(s) Body weight 110.2 [lb_av] 110.2 [lb_av] W ([facility]) Body height 63 [in_i] 63 [in_i] W1 ([facility]) Body mass index (BMI) [Ratio] 19.52 kg/m2 19.52 kg/m2 eCW1 ([facility]) Heart rate 82 /min 82 /min eCW1 ([facility]) Respiratory rate 18 /min 18 /min eCW1 ([facility]) Body temperature 98.0 [degF] 98.0 [degF] eCW1 ( [facility]) Systolic blood pressure 119 mm[Hg] 119 mm[Hg] e CW1 ([facility]) Diastolic blood pressure 59 mm[Hg] 59 mm[Hg] eCW1 ([facility]) Body weight 121.4 [lb_av] 121.4 [lb_av] eCW1 ([facility]) Body height 63 [in_i] 63 [in_i] eCW1 ([facility]) Body mass index (BMI) [Ratio] 21.50 kg/m2 21.50 kg/m2 eCW1 ([facility]) Heart rate 73 /min 73 /min eCW1 ([facility]) Respiratory rate 16 /min 16 /min eCW1 ([facility]) Body temperature 98.6 [degF] 98.6 [degF] eCW1 ( [facility]) Systolic blood pressure 120 mm[Hg] 120 mm[Hg] e [facility] - [place]) Diastolic blood pressure 75 mm[Hg] 75 mm[Hg] eCW1 ([facility] [place]) Oxygen saturation in Arterial blood by Pulse oximetry 100 % 100 % eCW1 ([facility]) Respiratory rate 16 /min 16 /min eCW1 ([facility]) Body mass index (BMI) [Ratio] 22.32 kg/m2 22.32 kg/m2 eCW1 ([facility]) Body weight 126 [lb_av] 126 [lb_av] eCW1 ([facility]) Body height 63 [in_i] 63 [in_i] eCW1 ([facility]) Body temperature 98.0 [degF] 98.0 [degF] eCW1 ( [facility]) Heart rate 69 /min 69 /min eCW1 ([facility]) Patient Treatment Plan of Care Planned Activity Planned Date Details Description Data Source (s) Augmentin 875-125 MG 11/05/2020 12:00:00 AM EST eCW1 ([facility]) Citalopram 20 MG Oral Tablet 10/28/2020 12:00:00 AM EST eCW1 ([facility] [place]) Citalopram 20 MG Oral Tablet 10/28/2020 12:00:00 AM EST eCW1 ([facility] [place]) Citalopram 20 MG Oral Tablet 10/28/2020 12:00:00 AM EST eCW1 ([facility] [place]) Citalopram 20 MG Oral Tablet 10/28/2020 12:00:00 AM EST eCW1 ([facility] [place]) Citalopram 10 MG Oral Tablet 10/28/2020 12:00:00 AM EST eCW1 ([facility] [place]) BD Insulin Syringe 25G X 5/8" 1 ML (Insulin Syringe-Ne edle U-100) 07/15/2020 12:00:00 AM [facility]ital Norethindrone 0.35 MG Oral Tablet 07/15/2020 12:00:00 AM [facility] Testosterone Cypionate 200 MG/ML Intramu scular Solution (DEPOTESTOTERONE CYPIONATE) 07/15/2020 12:00:00 AM [facility] Testosterone Cypionate 200 MG/ML Intramu scular Solution (DEPOTESTOTERONE CYPIONATE) 03/22/2020 12:00:00 AM [facility]
[2021-08-05 14:19] LABS: HEMATOCRIT 40.9 % (42.0-52.0); HEMOGLOBIN 13.8 g/dl (13.5-17.5); MEAN CORPUSCULAR HEMOGLOBIN 29.4 pg (27.0-33.0); MEAN CORPUSCULAR HGB CONC 33.7 g/dl (32.0-36.5); MEAN CORPUSCULAR VOLUME 87.2 fl (80.0-96.0); PLATELET COUNT, AUTOMATED 179 10^3/uL (150-450); RED BLOOD COUNT 4.69 10^6/uL (4.30-6.10)
[2021-08-05 14:39] LABS: AMPHETAMINES LEVEL URINE NEGATIVE (NEGATIVE); BARBITURATES URINE NEGATIVE (NEGATIVE); BENZODIAZEPINES URINE NEGATIVE (NEGATIVE); CANNABINOIDS URINE POSITIVE (NEGATIVE); COCAINE METABOLITE URINE NEGATIVE (NEGATIVE); METHADONE URINE NEGATIVE (NEGATIVE); OPIATES URINE NEGATIVE (NEGATIVE); PHENCYCLIDINE URINE NEGATIVE (NEGATIVE)
[2021-08-05 14:50] LABS: ACETAMINOPHEN LEVEL < 2.0 UG/ML (10.0-30.0); ALBUMIN 4.2 GM/DL (3.2-5.2); ALT/SGPT 21 U/L (12-78); BILIRUBIN,DIRECT 0.2 MG/DL (0.0-0.2); BILIRUBIN,TOTAL 0.8 MG/DL (0.2-1.0); BLOOD UREA NITROGEN 19 MG/DL (7-18); CALCIUM LEVEL 9.2 MG/DL (8.5-10.1); CARBON DIOXIDE LEVEL 27 MEQ/L (21-32); CHLORIDE LEVEL 109 MEQ/L (98-107); CREATININE FOR GFR 0.72 MG/DL (0.70-1.30); ETHYL ALCOHOL (ETHANOL) < 0.003 % (0.000-0.010); GLOMERULAR FILTRATION RATE > 60.0 (>60); GLUCOSE, FASTING 84 MG/DL (70-100); POTASSIUM SERUM 4.1 MEQ/L (3.5-5.1); SALICYLATE LEVEL < 1.7 MG/DL (5.0-30.0); SODIUM LEVEL 140 MEQ/L (136-145); THYROID STIMULATING HORMONE 0.383 uIU/ML (0.358-3.740); TOTAL PROTEIN 7.3 GM/DL (6.4-8.2)
--- NOTE | 2021-08-05 15:24 | MHIPNPDOC ---
[facility] Progress Note Progress Note DATE OF SERVICE: 08/05/21 Patient presented by PSA, does not meet criteria for involuntary admission. Collateral obtained from girlfriend who was present to corroborate story. Patient called boss and stated "I didn't feel like living" because he wanted to have a day off from work. patient denies SI, intent or plan, denies homicidal ideation, intent or plan. No drug use apart from routine cannabis use. No suicide attempt history. Has a history of gender transition and SI leading to [facility] admission in conflict with parents regarding transition as a teenager. No weapons, guns. Patient can be discharged with appointment within 5 days established, safety plan in place. Patient denies depressed mood, psychosis, ashish or anxiety symptoms. Laboratory Data 24H Labs Laboratory Tests 2 08/05/21 11:19: Nucleated Red Blood Cells % (auto) 0.0, Anion Gap 4L, Glomerular Filtration Rate > 60.0, Calcium Level 9.2, Total Bilirubin 0.8, Direct Bilirubin 0.2, Aspartate Amino Transf (AST/SGOT) 13, Alanine Aminotransferase (ALT/SGPT) 21, Alkaline Phosphatase 51, Total Protein 7.3, Albumin 4.2, Albumin/Globulin Ratio 1.4, Thyroid Stimulating Hormone (TSH) 0.383, Salicylates Level < 1.7L, Urine Opiates Screen NEGATIVE, Urine Methadone Screen NEGATIVE, Acetaminophen Level < 2.0L, Urine Barbiturates Screen NEGATIVE, Urine Phencyclidine Screen NEGATIVE, Urine Amphetamines Screen NEGATIVE, Urine Benzodiazepines Screen NEGATIVE, Urine Cocaine Metabolite Screen NEGATIVE, Urine Cannabinoids Screen POSITIVEH, Ethyl Alcohol Level < 0.003 CBC/BMP Laboratory Tests 08/05/21 11:19 Allergies Coded Allergies: No Known Allergies (Unverified , 09/02/14) LYNDON MILLER MD Aug 05, 2021 15:24
[2021-08-05 16:42] VITALS: BP 112/60
== END 2021-08-05 16:44 | disposition home or self-care (01) ==
LOC: M ED 11:08
DX: F43.0 Acute stress reaction (principal); F12.10 Cannabis abuse, uncomplicated; Z79.890 Hormone replacement therapy